=== PATIENT | female | born 1935 | race Asian ===

== ENCOUNTER → 2018-01-26 | Outpatient (CLI) | payer MEDICARE, OTHER ==
[~2018-01-26] VITALS: Ht 152.4 cm; Wt 62.0 kg
[~2018-01-26] MED LIST: AMLO-511 PO; ASPI81 PO; ATOR10TA84 PO; CARV3 PO; CLOP75 PO; FURO20 PO; LOSA50TA37 PO; METF500T7 PO; PANT40TA25 PO; SIMV-259 PO
[2018-01-26 10:18] VITALS: BP 113/54
== END | disposition home or self-care (01) ==
LOC: SRCNTR 10:03
PROVIDERS: ATTEND Internal Medicine Critical Care Medicine
DX: I11.0 Hypertensive heart disease with heart failure (principal); I25.10 Atherosclerotic heart disease of native coronary artery without angina pectoris; E11.9 Type 2 diabetes mellitus without complications; J47.9 Bronchiectasis, uncomplicated; R91.1 Solitary pulmonary nodule; I50.32 Chronic diastolic (congestive) heart failure; E78.5 Hyperlipidemia, unspecified; M19.90 Unspecified osteoarthritis, unspecified site; Z95.1 Presence of aortocoronary bypass graft
CPT/HCPCS: G0463